=== PATIENT | male | born 1940 | race African-American/Black ===

== ENCOUNTER 2017-04-07 15:43 | Emergency (ER) | payer BC, MEDICARE ==
[2017-04-07 16:37] VITALS: BP 183/111
--- NOTE | 2017-04-07 16:56 | EDM.PDOC ---
ED HPI GENERAL MEDICAL PROBLEM - General Chief Complaint: Abdominal Pain Stated Complaint: ABD PAIN Time Seen by Provider: 04/07/17 16:43 Source of Information: Reports: Patient History Limitations: Reports: No Limitations - History of Present Illness INITIAL COMMENTS - FREE TEXT/NARRATIVE: 76-year-old male presents to the ED with acute onset of illness starting at 1: 00 today. Acute onset of fever chills and rigors. Associated nausea and vomiting. Vomited twice of bilious material without blood. Patient is a peritoneal dialysis catheter patient usually leaves the dialyzing in overnight and then drains the bag in the morning. He is unsure what his creatinine runs at. His renal function is deteriorated due to underlying diabetes. Patient does have diffuse abdominal pain. He denies cough or sputum production. He has not been able to eat all today. Onset: Today Onset Date: 04/07/17 Onset Time: 13:00 Duration: Hour(s):, Getting Worse Location: Reports: Abdomen (Diffuse abdominal pain. Associated nausea vomiting) , Generalized Quality: Reports: Ache Severity: Moderate Improves with: Reports: None Worsens with: Reports: Movement Context: Denies: Activity, Exercise, Lifting, Sick Contact, Trauma, Other Associated Symptoms: Reports: Fever/Chills, Loss of Appetite (Miguel rigors occurred earlier this afternoon about 1300 hrs.), Malaise, Nausea/Vomiting ( Vomited once of bilious material. No blood), Shortness of Breath. 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: Other (see below) (None.) Middle Abdominal Pain Score (Numeric/FACES): 10 - Related Data Allergies Allergy/AdvReac Type Severity Reaction Status Date / Time animal dander Allergy Itching Verified 04/07/17 16:26 Home Meds: Home Meds Carvedilol 25 mg PO BID 02/09/16 [History] Docusate Sodium 100 mg PO BID 02/09/16 [History] Furosemide 40 mg PO TID 02/09/16 [History] Lisinopril 40 mg PO BID 02/09/16 [History] Simvastatin [Zocor] 20 mg PO BEDTIME 02/09/16 [History] amLODIPine [Norvasc] 10 mg PO DAILY 02/09/16 [History] cloNIDine HCl [Catapres] 0.2 mg PO TID 02/09/16 [History] hydrALAZINE [Apresoline] 50 mg PO TID 02/09/16 [History] Biotin/FA/Vit C/Vit B Complex [Nephrocaps] 1 tab PO DAILY 08/20/16 [History] Calcium Carbonate [Tums] 500 mg PO Q2HR 08/20/16 [History] Omeprazole 20 mg PO DAILY 08/20/16 [History] Polyethylene Glycol 3350 [MiraLAX] 17 gm PO DAILY 08/20/16 [History] Past Medical History HEENT History: Reports: Impaired Vision Other HEENT History: glasses Cardiovascular History: Reports: High Cholesterol, Hypertension Respiratory History: Reports: Sleep Apnea Gastrointestinal History: Reports: Chronic Constipation, GERD Genitourinary History: Reports: Chronic Renal Insuffiency (Secondary to diabetes.), Dialysis, Peritoneal (Has been using peritoneal dialysis for about 3 years. Has had peritonitis develop in the past from peritoneal dialysis catheter.) Musculoskeletal History: Reports: Osteoarthritis Neurological History: Reports: Neuropathy, Diabetic Psychiatric History: Reports: Anxiety, Depression Endocrine/Metabolic History: Reports: Diabetes, Type II Hematologic History: Reports: Anemia - Infectious Disease History Infectious Disease History: Reports: Chicken Pox - Past Surgical History Male Surgical History: Reports: Vasectomy, Other (See Below) Musculoskeletal Surgical History: Reports: Knee Replacement Social & Family History - Family History Family Medical History: Noncontributory - Tobacco Use Smoking Status *Q: Former Smoker Years of Tobacco use: 4 Packs/Tins Daily: 0.1 Used Tobacco, but Quit: Yes Month Tobacco Last Used: 20 years Second Hand Smoke Exposure: No - Caffeine Use Caffeine Use: Reports: None - Recreational Drug Use Recreational Drug Use: Yes Drug Use in Last 12 Months: Yes Recreational Drug Type: Reports: Marijuana/Hashish Recreational Drug Use Frequency: Monthly - Living Situation & Occupation Living situation: Reports: , with Family Occupation: Retired ED ROS GENERAL - Review of Systems Review Of Systems: See Below Constitutional: Reports: Fever, Chills, Malaise, Weakness, Fatigue, Decreased Appetite, Weight Loss HEENT: Reports: Glasses Respiratory: Denies: Shortness of Breath, Wheezing, Pleuritic Chest Pain, Cough , Sputum, Hemoptysis Cardiovascular: Reports: Blood Pressure Problem, Dyspnea on Exertion (Always has some swelling in his lower extremities), Edema. Denies: Chest Pain, Claudication, Lightheadedness, Orthopnea (Chronic hypertension), Palpitations ( chronically) Endocrine: Reports: Fatigue, High Glucose (Is a diabetic.) GI/Abdominal: Reports: Abdominal Pain (JK appreciated in his right upper quadrant today.) : Reports: Other (Patient states he doesn't make any urine at all.) Musculoskeletal: Reports: Back Pain, Joint Pain Skin: Reports: Bruising (Bruises fairly easily.) Neurological: Reports: Dizziness Psychiatric: Reports: No Symptoms Hematologic/Lymphatic: Reports: No Symptoms Immunologic: Reports: No Symptoms ED EXAM, GI/ABD - Physical Exam Exam: See Below Exam Limited By: Other (Patient is acutely ill and prefers to lie still with his eyes closed. He has moderately warm to palpation.) General Appearance: Moderate Distress ( Does answer questions appropriately.) Eyes: Bilateral: Normal Appearance (No jaundice.) Throat/Mouth: Other Head: Atraumatic, Normocephalic Neck: Normal Inspection, Supple, Non-Tender, Full Range of Motion. No: Lymphadenopathy (L), Lymphadenopathy (R) Respiratory/Chest: Respiratory Distress (Mild tachypnea at rest.), Decreased Breath Sounds (Decreased breath sounds to the posterior 25% of lung lee. No adventitial sounds appreciated) Cardiovascular: Regular Rate, Rhythm, No Gallop, No Murmur, No Rub. No: Normal Peripheral Pulses, No Edema GI/Abdominal Exam: Tender (Hypoactive bowel sounds a tender throughout the right hemiabdomen and particularly the right upper quadrant of the abdomen.), Abnormal Bowel Sounds, Other (Urgent male dialysis catheter in the left mid abdomen.) (Male) Exam: No Hernia Extremities: Normal Inspection, Non-Tender, Normal Capillary Refill, Pedal Edema Neurological: Alert, Oriented, CN II-XII Intact, Normal Cognition. No: Normal Gait Psychiatric: Normal Affect, Normal Mood Skin Exam: Warm, Dry, Intact, Normal Color, No Rash Course - Vital Signs Last Recorded V/S: Last Vital Signs Temp 36.4 C 04/07/17 16:26 Pulse 97 04/07/17 16:26 Resp 20 04/07/17 16:26 BP 183/111 H 04/07/17 16:26 Pulse Ox 99 04/07/17 16:26 - Orders/Labs/Meds Orders: Active Orders 24 hr Category Date Time Status RT Arterial Blood Gases, ABG [RC] Click To Edit Care 04/07/17 16:44 Active Chest 1V Frontal [CR] Stat Exams 04/07/17 16:43 Taken CULTURE BLOOD [BC] Stat Lab 04/07/17 17:25 Received CULTURE BLOOD [BC] Stat Lab 04/07/17 17:43 Received Blood Culture x2 Reflex Set [OM.PC] Stat Oth 04/07/17 16:45 Ordered Labs: Laboratory Tests 04/07/17 04/07/17 04/07/17 Range/Units 17:25 17:25 17:25 WBC 11.55 H (4.23-9.07) K/mm3 RBC 3.48 L (4.63-6.08) M/mm3 Hgb 10.7 L (13.7-17.5) gm/L Hct 34.3 L (40.1-51.0) % MCV 98.6 H (79.0-92.2) fl MCH 30.7 (25.7-32.2) pg MCHC 31.2 L (32.2-35.5) g/dl RDW Std Deviation 67.8 H (35.1-43.9) fL Plt Count 190 (163-337) K/mm3 MPV 11.1 (9.4-12.3) fl Neutrophils % (Manual) 94 H (40-60) % Band Neutrophils % 0 (0-10) % Lymphocytes % (Manual) 4 L (20-40) % Atypical Lymphs % 0 % Monocytes % (Manual) 1 L (2-10) % Eosinophils % (Manual) 1 (0.8-7.0) % Basophils % (Manual) 0 L (0.2-1.2) Platelet Estimate Adequate RBC Morph Comment Normal ESR (0-15) mm/hr PT 11.3 (8.0-13.0) SECONDS INR 1.03 Sodium 143 (136-145) mEq/L Potassium 4.1 (3.5-5.1) mEq/L Chloride 101 (98-107) mEq/L Carbon Dioxide 32 (21-32) mEq/L Anion Gap 14.1 (5-15) BUN 46 H (7-18) mg/dL Creatinine 13.8 H (0.7-1.3) mg/dL Est Cr Clr Drug Dosing 5.44 mL/min Estimated GFR (MDRD) 4 (>60) mL/min BUN/Creatinine Ratio 3.3 L (14-18) Glucose 154 H (83-115) mg/dL Calcium 10.5 H (8.5-10.1) mg/dL Total Bilirubin 0.4 (0.2-1.0) mg/dL AST 18 (15-37) U/L ALT 13 L (16-63) U/L Alkaline Phosphatase 43 L (46-116) U/L Troponin I 0.064 H* (0.00-0.056) ng/mL C-Reactive Protein < 0.2 (<1.0) mg/dL Yfs-A-Xpsatnenxyy Pept > 68257 H (0-450) pg/mL Total Protein 7.0 (6.4-8.2) g/dl Albumin 3.4 (3.4-5.0) g/dl Globulin 3.6 gm/dL Albumin/Globulin Ratio 0.9 L (1-2) Lipase 116 (73-393) U/L 04/07/17 Range/Units 17:25 WBC (4.23-9.07) K/mm3 RBC (4.63-6.08) M/mm3 Hgb (13.7-17.5) gm/L Hct (40.1-51.0) % MCV (79.0-92.2) fl MCH (25.7-32.2) pg MCHC (32.2-35.5) g/dl RDW Std Deviation (35.1-43.9) fL Plt Count (163-337) K/mm3 MPV (9.4-12.3) fl Neutrophils % (Manual) (40-60) % Band Neutrophils % (0-10) % Lymphocytes % (Manual) (20-40) % Atypical Lymphs % % Monocytes % (Manual) (2-10) % Eosinophils % (Manual) (0.8-7.0) % Basophils % (Manual) (0.2-1.2) Platelet Estimate RBC Morph Comment ESR 30 H (0-15) mm/hr PT (8.0-13.0) SECONDS INR Sodium (136-145) mEq/L Potassium (3.5-5.1) mEq/L Chloride (98-107) mEq/L Carbon Dioxide (21-32) mEq/L Anion Gap (5-15) BUN (7-18) mg/dL Creatinine (0.7-1.3) mg/dL Est Cr Clr Drug Dosing mL/min Estimated GFR (MDRD) (>60) mL/min BUN/Creatinine Ratio (14-18) Glucose (83-115) mg/dL Calcium (8.5-10.1) mg/dL Total Bilirubin (0.2-1.0) mg/dL AST (15-37) U/L ALT (16-63) U/L Alkaline Phosphatase (46-116) U/L Troponin I (0.00-0.056) ng/mL C-Reactive Protein (<1.0) mg/dL Vyn-X-Gypimawybqh Pept (0-450) pg/mL Total Protein (6.4-8.2) g/dl Albumin (3.4-5.0) g/dl Globulin gm/dL Albumin/Globulin Ratio (1-2) Lipase (73-393) U/L Meds: Medications Discontinued Medications Generic Name Dose Route Start Last Admin Trade Name Freq PRN Reason Stop Dose Admin Hydromorphone HCl 1 mg 04/07/17 18:59 04/07/17 19:08 Dilaudid IVPUSH 04/07/17 19:00 1 mg ONETIME ONE Administration Sodium Chloride 1,000 mls @ 150 mls/hr 04/07/17 17:15 04/07/17 17:10 Normal Saline IV 150 mls/hr ASDIRECTED JESSICA Administration Sodium Chloride Confirm 04/07/17 17:04 04/07/17 17:32 Normal Saline Administered 04/07/17 17:05 Not Given Dose 500 mls @ as directed .ROUTE .STK-MED ONE Sodium Chloride 500 mls @ 999 mls/hr 04/07/17 17:32 04/07/17 17:37 Normal Saline IV 04/07/17 18:02 999 mls/hr .BOLUS ONE Administration Cefazolin Sodium/Dextrose 2 gm 50 mls @ 100 mls/hr 04/07/17 18:35 04/07/17 18 :58 / Premix IV 04/07/17 19:04 Not Given ONETIME ONE Cefepime HCl 2 gm/ Premix 50 mls @ 100 mls/hr 04/07/17 18:44 04/07/17 18:54 IV 04/07/17 19:13 100 mls/hr ONETIME ONE Administration Vancomycin HCl 1 gm/ Sodium 250 mls @ 250 mls/hr 04/07/17 19:01 04/07/17 20: 55 Chloride IV 04/07/17 20:00 Not Given ONETIME ONE Ondansetron HCl 4 mg 04/07/17 17:00 04/07/17 17:10 Zofran IVPUSH 04/07/17 17:01 4 mg ONETIME ONE Administration Vancomycin HCl 100 mg 04/07/17 18:45 04/07/17 18:58 First-Vancomycin 50 Compounding Kit .XX 04/07/17 18:46 Not Given ONETIME ONE Vancomycin HCl Confirm 04/07/17 18:51 04/07/17 18:58 First-Vancomycin 50 Compounding Kit Administered 04/07/17 18:52 Not Given Dose 50 mg .ROUTE .K-[facility] ONE - Radiology Interpretation Free Text/Narrative:: 76-year-old male presents to the ED with acute onset of illness starting at 1300 hrs. today. Hasn't eaten all day today which is suspicious for illness developing earlier. He appreciated fever and shaking violently i.e. rigors at about 1300 hrs. Patient has a peritoneal dialysis catheter in place for dialysis nightly. He has chronic severe renal insufficiency from long-term diabetes. Denies cough or sputum production. Is mildly warm to palpation at the time of examination. He appears lethargic. He is tender in his right upper quadrant of the abdomen. This is even to light percussion suggesting peritonitis. Plan septic workup including lactic acid ordered. Blood cultures 2. I will instill 500 mils of normal saline into his abdomen via peritoneal dialysis catheter and leave it for one half hour and then collect the sample. He will then be given Cefipime 2gm IV and Vancomycin 100mg intraperitoneally. Given Zofran 4 mg IV. Normal saline at 150 mils per hour. - Re-Assessments/Exams Free Text/Narrative Re-Assessment/Exam: 04/07/17 18:00: Chest x-ray done portably reveals moderate cardiomegaly. He has a pacemaker defibrillator left upper anterior chest. There is some evidence of diffuse vascular congestion mostly centrally without any pleural effusions. No lung infiltrates are appreciated. I was able to instill 500 mils warmed normal saline into his intra-abdominal cavity through his peritoneal dialysis catheter. Was left for one half hour in place and then drained. The fluid was sent to the lab for Gram stain culture and a white blood cell count. Patient will now be given antibiotics cefepime 2 g intravenously implant to use vancomycin intraperitoneally. I had spoken with Dr. Wang bar and filler assembler at [facility] and he has agreed the patient is likely septic and developing peritonitis from peritoneal dialysis catheter. He's had this occur on 2 previous occasions with the last time in August of this last year. Plan is to do can start the septic workup here in then transfer him after speaking to the hospitalist. 04/07/17 [id number]: Transfer to [facility] Arturo got significantly delayed due to busyness in the ED and coated in ICU. His white count was 11.55 with 94% neutrophils and no bands. Hemoglobin was low at 10.7 due to his renal insufficiency hematocrit is 34.3 platelets 190,000. Sedimentation rate was 30 coags were normal. Sodium 143 potassium 4.1. Toward 101 bicarbonate 32 meaning he's mild CO2 retainer. B1 was 46. Creatinine is 13.8. Anion gap is 14.1. Glucose was 154 troponin was 0.064 . proBNP was 35,000. Lipase 116. Calcium is mildly elevated at 10.5. The nurses found it impossible to find the right amount of vancomycin to instill into the intraperitoneal cavity through his dialysis catheter. Therefore the patient only received cefepime 2 g intravenously for his current infective process which is felt to be peritonitis. I did not CT his abdomen as he has had previous cholecystectomy. I believe strongly he has a peritonitis secondary to peritoneal dialysis catheter. Patient was transferred to [facility] under the care of Dr. Lin tank wagon operator hospitalist. Patient was transported per [facility] since they were here and willing to take them at the time. I felt I had ordered a serum lactic acid but for whatever reason it did not get done. Departure - Departure Time of Disposition: 21:00 Disposition: DC/Tfer to Acute Hospital 02 Condition: Critical Clinical Impression: Acute febrile illness Peritonitis associated with peritoneal dialysis Qualifiers: Encounter type: initial encounter Qualified Code(s): T85.71XA - Infection and inflammatory reaction due to peritoneal dialysis catheter, initial encounter Renal failure Qualifiers: Renal failure chronicity: chronic Chronic kidney disease stage: on chronic dialysis Qualified Code(s): N18.6 - End stage renal disease; Z99.2 - Dependence on renal dialysis - Discharge Information Forms: ED Department Discharge - My Orders Last 24 Hours: My Active Orders 04/07/17 16:43 Chest 1V Frontal [CR] Stat 04/07/17 16:44 RT Arterial Blood Gases, ABG [RC] Click To Edit 04/07/17 16:45 Blood Culture x2 Reflex Set [OM.PC] Stat 04/07/17 17:25 CULTURE BLOOD [BC] Stat 04/07/17 17:43 CULTURE BLOOD [BC] Stat - Assessment/Plan Last 24 Hours: My Active Orders 04/07/17 16:43 Chest 1V Frontal [CR] Stat 04/07/17 16:44 RT Arterial Blood Gases, ABG [RC] Click To Edit 04/07/17 16:45 Blood Culture x2 Reflex Set [OM.PC] Stat 04/07/17 17:25 CULTURE BLOOD [BC] Stat 04/07/17 17:43 CULTURE BLOOD [BC] Stat
[2017-04-07] MEDS ORDERED: Ondansetron 4 MG/2 ML SDV IVPUSH ONE (17:00)
[2017-04-07] MEDS ORDERED: Sodium Chloride 0.9% 500 ML ONE (17:04)
[2017-04-07] MEDS ORDERED: Sodium Chloride 0.9% 1,000 ML IV SCH (17:15)
[2017-04-07] MEDS ORDERED: Sodium Chloride 0.9% 500 ML IV ONE (17:32)
[2017-04-07] MEDS ORDERED: ceFAZolin 2 GM in Premix Bag 1 BAG IV ONE (18:35)
[2017-04-07] MEDS ORDERED: Cefepime 2 GM in Premix Bag 1 BAG IV ONE (18:44)
[2017-04-07] MEDS ORDERED: Vancomycin 50 MG/ML 150ML Oral Solution Kit ONE ×2 (18:45→18:51)
[2017-04-07] MEDS ORDERED: HYDROmorphone 1 MG/ML Syringe IVPUSH ONE (18:59)
--- NOTE | 2017-04-08 07:56 | CR ---
Chest: Portable view of the chest was obtained. Comparison: Previous chest x-ray of 03/13/16. Heart is slightly enlarged. Tortuous thoracic aorta is seen. AICD is present. Lungs are clear. Bony structures are grossly intact. Impression: 1. Slight cardiomegaly and IACD. 2. Nothing acute is identified on portable chest x-ray. Diagnostic code #2
== END 2017-04-07 19:21 ==
LOC: JD.ED 15:43
DX: T85.71XA Infection and inflammatory reaction due to peritoneal dialysis catheter, initial encounter (principal); I12.0 Hypertensive chronic kidney disease with stage 5 chronic kidney disease or end stage renal disease; N18.6 End stage renal disease; E78.00 Pure hypercholesterolemia, unspecified; E11.22 Type 2 diabetes mellitus with diabetic chronic kidney disease; K21.9 Gastro-esophageal reflux disease without esophagitis; M19.90 Unspecified osteoarthritis, unspecified site; Z99.2 Dependence on renal dialysis; Z91.09 Other allergy status, other than to drugs and biological substances; Z79.899 Other long term (current) drug therapy; Z86.2 Personal history of diseases of the blood and blood-forming organs and certain disorders involving the immune mechanism; Z98.890 Other specified postprocedural states; Z87.891 Personal history of nicotine dependence
CPT/HCPCS: 36415; 71010; 80053; 83690; 83880; 84484; 85025; 85610; 85652; 86140; 87040; 87070; 87205; 93005; 96361; 96365; 96375; 99285; J0692; J1170; J2405; J7040